=== PATIENT | female | born 1975 | race Asian ===

== ENCOUNTER → 2023-08-25 09:00 | Outpatient (REF) | payer BC, SELFPAY | LOC: WDC 09:00 | PROVIDERS: ATTENDING PHYSICIAN Obstetrics & Gynecology; FAMILY PHYSICIAN Family Medicine | DX: R92.8 Other abnormal and inconclusive findings on diagnostic imaging of breast (principal) | CPT/HCPCS: 76642 ==

== ENCOUNTER → 2024-03-14 07:52 | Outpatient (REF) | payer BC, SELFPAY | LOC: MRI 3T 07:52 | PROVIDERS: FAMILY PHYSICIAN Family Medicine | DX: C50.912 Malignant neoplasm of unspecified site of left female breast (principal) | CPT/HCPCS: 77049; A9585 ==

== ENCOUNTER → 2024-04-20 10:16 | Outpatient (REF) | payer BC, SELFPAY | LOC: HWRAD 10:16 | PROVIDERS: ATTENDING PHYSICIAN Internal Medicine Hematology & Oncology; FAMILY PHYSICIAN Family Medicine; OTHER PHYSICIAN Obstetrics & Gynecology | DX: N95.1 Menopausal and female climacteric states (principal); N92.6 Irregular menstruation, unspecified; Z79.810 Long term (current) use of selective estrogen receptor modulators (SERMs) | CPT/HCPCS: 76830; 76856 ==

== ENCOUNTER → 2024-04-21 13:13 | Outpatient (REF) | payer BC, SELFPAY | LOC: PAVMRI 13:13 | PROVIDERS: ATTENDING PHYSICIAN Orthopaedic Surgery; FAMILY PHYSICIAN Family Medicine | DX: M94.20 Chondromalacia, unspecified site (principal) | CPT/HCPCS: 73721 ==

== ENCOUNTER → 2024-05-09 06:28 | Day surgery (SDC) | payer BC, SELFPAY | LOC: GI 06:28 | PROVIDERS: ATTENDING PHYSICIAN Internal Medicine Gastroenterology; FAMILY PHYSICIAN Family Medicine | DX: Z12.11 Encounter for screening for malignant neoplasm of colon (principal); D12.4 Benign neoplasm of descending colon; K64.8 Other hemorrhoids | CPT/HCPCS: 45380; 88305 ==

== ENCOUNTER → 2024-08-23 07:50 | Outpatient (REF) | payer BC, SELFPAY | LOC: WDC 07:50 | PROVIDERS: ATTENDING PHYSICIAN Radiology Radiation Oncology | DX: Z12.31 Encounter for screening mammogram for malignant neoplasm of breast (principal) | CPT/HCPCS: 77063; 77067 ==

== ENCOUNTER 2024-10-10 06:22 | Day surgery (SDC) | payer OTHER, SELFPAY ==
[2024-09-26 11:25] LABS: % Basophils 0.7 % (0-2); % Eosinophils 2.1 % (0-6); % Lymphocytes 24.6 % (20.5-51.1); % Monocytes 6.1 % (1.7-9.3); % Neutrophils 66.5 % (42.2-75.2); Absolute Eosinophils 0.1 10^3/uL (0-0.7); Absolute Lymphocytes 1.1 10^3/uL (1.2-3.4); Absolute Monocytes 0.3 10^3/uL (0.1-0.6); Absolute Neutrophils 2.8 10^3/uL (1.4-6.5); Hematocrit 41.5 % (37.0-47.0); Hemoglobin 13.7 g/dL (12.0-16.0); Mean Corpuscular Hgb 30.9 pg (27.0-31.0); Mean Corpuscular Volume 93.5 fL (81.0-99.0); Mean Platelet Volume 10.3 fL (7.4-10.4); Nucleated Red Blood Cells % 0 %; Platelet Count 252 10^3/uL (130-400); Red Blood Cell Count 4.44 10^6/uL (4.20-5.40); Red Cell Dist. Width 12.4 % (11.5-14.5); White Blood Cell Count 4.3 10^3/uL (4.8-10.8)
[2024-09-26 12:10] LABS: Blood Urea Nitrogen 15 mg/dl (7-17); Calcium 9.5 mg/dl (8.4-10.2); Carbon Dioxide 29 mmol/L (22-30); Chloride 102 mmol/L (98-107); Glucose 90 mg/dl (70-99); Potassium 4.1 mmol/L (3.5-5.1); Sodium 140 mmol/L (135-145); eGFR > 60.00
[2024-09-27 12:28] VITALS: BMI 20.3
[2024-10-10] VITALS (8 sets, daily range): BP systolic 100–116; BP diastolic 40–72; BMI 20.3
[2024-10-10] MEDS: NEURONTIN 100 MG PO (06:44)
[2024-10-10] MEDS: TYLENOL 1000 MG PO (06:44)
[2024-10-10] MEDS: NORMOSOL-R/PLASMALYTE-A 1000 IV (06:51)
--- NOTE | 2024-10-10 08:13 | W.IMMPOSTOP ---
Surgical Immed Post Op Note
-
Primary Surgeon: Delma Diaz DO
Assisting Surgeon: N/A
Pre-op Diagnosis: Postmenopausal bleeding, thickened endometrial lining (6 mm), insufficient office biopsy
Post-op Diagnosis: Same
Procedure Performed: Diagnostic hysteroscopy D&C, suturing of cervical abrasion
Anesthesia Type: General LMA Dr. Cruz
Specimen / Cultures: 1. Endocervical curettings 2. Endometrial curettings
Estimated Blood Loss: 2 mL
Complications: Superficial abrasion on posterior cervix from tenaculum-sutured with 1 [id number] stitch for hemostasis.
Operative Findings: Uterus sounds to 6 cm. Bilateral tubal ostia visualized. The endometrial lining is completely atrophic. There is no evidence of lesions, polyp, mass. No abnormality seen.
Counts correct x 2
Stable to recovery.
Dictated.
== END 2024-10-10 09:50 | disposition home or self-care (01) ==
LOC: SDS 06:22
PROVIDERS: ATTENDING PHYSICIAN Obstetrics & Gynecology; FAMILY PHYSICIAN Family Medicine
DX: R93.89 Abnormal findings on diagnostic imaging of other specified body structures (principal); N95.0 Postmenopausal bleeding; N86 Erosion and ectropion of cervix uteri; Z85.3 Personal history of malignant neoplasm of breast
CPT/HCPCS: 58558; 88305; 80048; 85025; 86850; 86900; 86901; 88341; 88342

== ENCOUNTER 2024-10-22 07:41 | Emergency (ER) | payer OTHER, SELFPAY ==
[2024-10-22 07:45] VITALS: BP 119/87
--- NOTE | 2024-10-22 09:03 | ED.GENMED ---
History of Present Illness
General
Chief Complaint: Headache
Source: patient
Exam Limitations: none
Time Seen by Provider: 10/22/24 08:34
Nursing documentation reviewed up to this point in time: agreed with
History of Present Illness
History of Present Illness:
49-year-old female presents emergency room complaining of headache for the past 4 days. She has been taking ibuprofen which helps, but then the headache returns. He has a history of headaches in the past, but this episode does feel different.
Past History
Past History
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
ED Past Surgical History: Other (Left breast lumpectomy with lymph node dissection)
Social History
Tobacco: Non-smoker
Personal:
Review of Systems
Review of Systems
Allergies reviewed?: Yes
All Other Systems: Not applicable
Constitutional: Reports no symptoms
EENT: Reports no symptoms
Respiratory: Reports no symptoms
Cardiac: Reports no symptoms
ABD/GI: Reports no symptoms
: Reports no symptoms
Musculoskeletal: Reports no symptoms
Skin: Reports no symptoms
Neurological: Reports headache
Endocrine: Reports no symptoms
Hematologic/Lymphatic: Reports no symptoms
Psychiatric: Reports no symptoms
Phy Exam
Physical Exam
Physical Exam:
Physical Exam
General: no apparent distress, not acutely ill
Neck: supple. no meningeal signs. normal posterior pharynx
Heart: s1/s2 regular rate and rhythm, no murmur. equal radial
pulses.
HEENT: Pupils equal round reactive to light, EOMI
Lungs: no acute respiratory distress. clear bilaterally
Abdomen: normal bowel sounds. not tender. no CVAT
Neuro: alert and oriented. no focal neurological deficits cranial nerves II through XII intact
Skin: no rash
Psychiatric: well kept. interactive and cooperative
Extremities: no edema. no calf tenderness. negative homans. good distal pulses
Course
Orders/Labs/Results
Orders:
Orders
10/22/24 08:59
IV Insert/Care/Rem.- Treatment PRN
10/22/24 09:01
CT Head W/o Iv Contrast Urgent
Comment:
Reason For Exam: posterior headache 3 days
10/22/24 09:02
IV Insert/Care/Rem.- Treatment PRN
Diphenhydramine [Benadryl] 25 mg IV NOW STA
Ketorolac [Toradol] 15 mg IV NOW STA
Metoclopramide [Reglan] 10 mg IV NOW STA
10/22/24 11:02
Complete Blood Count/With Diff Urgent
Comprehensive Metabolic Panel Urgent
Abnormal Lab Results
10/22/24
11:02
WBC 4.2 L 10^3/uL
(4.8-10.8)
Absolute Lymphs (auto) 1.1 L 10^3/uL
(1.2-3.4)
Monocytes % 11.6 H %
(1.7-9.3)
Chloride 110 H mmol/L
(98-107)
10/22/24 11:02
10/22/24 11:02
Vital Signs
Initial and Last Documented VS:
Initial Vital Signs
Temp Pulse Resp BP Pulse Ox
98.0 F 74 16 119/87 98
10/22/24 07:45 10/22/24 07:45 10/22/24 07:45 10/22/24 07:45 10/22/24 07:45
Last Documented Vital Signs
Temp Pulse Resp BP Pulse Ox
98.0 F 75 16 115/69 96
10/22/24 07:45 10/22/24 11:14 10/22/24 11:14 10/22/24 11:14 10/22/24 11:14
MDM/Problems Addressed
Differential Diagnosis Includes:
Migraine, intracranial tumor
MDM/Problems Addressed:
49-year-old female with headache, suspect migraine. No neurologic deficits. Vital signs stable. CT head normal. Discharged follow-up with primary care. Return precautions given.
Chronic conditions affecting care: Neurological disorder (Migraines)
*Radiology
Radiology exam reviewed: radiology read reviewed (CT head no acute findings)
*Pulse Oximetry
Patient hypoxic: no
*Critical Care Note
Total Time (30-74mins, 75-104mins- exclusive of procedures): Not Applicable
Data Reviewed
Review of Other/Old Records Reveals: Radiology Studies (prior head ct nad)
Source: records
Patient Management
Social determinants of health affecting care: Living situation and Strong social support
Escalation/DeEscalation of care consider admission/obs:
admit not indicated
ED Attending Note
-
Portions of this chart may have been created with voice recognition software.� Occasional wrong word or��sound alike� substitutions may have occurred due to the inherent limitations of voice recognition software.
Discharge Plan
Departure
Patient Disposition: Home (Routine Discharge)
Date of Disposition: 10/22/24
Time of Disposition: 12:19
Patient with high blood pressure during this ER visit?: No
Condition: Good
Discharge Problem:
Headache
Instructions: Headache, Adult (DC)
Prescriptions:
No Action
acetaminophen [Tylenol Extra Strength] 500 mg Tablet
1,000 mg PO Q6H PRN (Reason: pain)
ibuprofen 200 mg Tablet
400 mg PO Q6H PRN (Reason: pain)
tamoxifen 20 mg Tablet
20 mg PO DAILY
Vitamin D3
1 dose PO DAILY
cyanocobalamin (vitamin B-12)
1 dose PO DAILY
Metamucil Packet
1 packet PO DAILY
Revaree 5 mg Suppository
1 supp VAGINAL Q3D
Referrals:
Giovanna Whitfield, [Family Provider] - Call in 1-3 days for appt
Interventions
Interventions:
*Risk Screen - Suicide Last Done: 10/22/24 07:45
*General Assessment Last Done: 10/22/24 08:54
*Neglect/Abuse Screening Last Done: 10/22/24 07:47
*ED- Fall Risk Assessment Last Done: 10/22/24 08:54
*ED COVID-19 Vaccine History Last Done: 10/22/24 08:54
ED- Neurological Assessment Last Done: 10/22/24 08:54
Discharge Date and Time
Print Language: [place]
[2024-10-22] MEDS: BENADRYL 25 MG IV (09:43)
[2024-10-22] MEDS: REGLAN 10 MG IV (09:46)
[2024-10-22] MEDS: TORADOL 15 MG IV (09:51)
[2024-10-22 11:14] VITALS: BP 115/69
[2024-10-22 11:16] LABS: % Basophils 0.5 % (0-2); % Eosinophils 1.9 % (0-6); % Immature Granulocytes 0.2 % (0-0.5); % Lymphocytes 25.5 % (20.5-51.1); % Monocytes 11.6 % (1.7-9.3); % Neutrophils 60.3 % (42.2-75.2); Absolute Eosinophils 0.1 10^3/uL (0-0.7); Absolute Lymphocytes 1.1 10^3/uL (1.2-3.4); Absolute Monocytes 0.5 10^3/uL (0.1-0.6); Absolute Neutrophils 2.6 10^3/uL (1.4-6.5); Hematocrit 37.6 % (37.0-47.0); Mean Corp Hgb Conc. 34.6 g/dL (33.0-37.0); Mean Corpuscular Hgb 30.9 pg (27.0-31.0); Mean Corpuscular Volume 89.3 fL (81.0-99.0); Mean Platelet Volume 9.6 fL (7.4-10.4); Nucleated Red Blood Cells % 0 %; Platelet Count 193 10^3/uL (130-400); Red Blood Cell Count 4.21 10^6/uL (4.20-5.40); Red Cell Dist. Width 12.1 % (11.5-14.5); White Blood Cell Count 4.2 10^3/uL (4.8-10.8)
[2024-10-22 11:24] LABS: ALT (SGPT) 20 U/L (0-35); AST (SGOT) 24 U/L (14-36); Albumin 4.2 g/dl (3.5-5.0); Alkaline Phosphatase 47 U/L (38-126); Blood Urea Nitrogen 14 mg/dl (7-17); Calcium 9.4 mg/dl (8.4-10.2); Carbon Dioxide 27 mmol/L (22-30); Chloride 110 mmol/L (98-107); Glucose 86 mg/dl (70-99); Sodium 143 mmol/L (135-145); Total Bilirubin 0.4 mg/dl (0.2-1.3); Total Protein 6.4 g/dl (6.3-8.2); eGFR > 60.00
[2024-10-22 12:37] VITALS: BP 115/68
== END 2024-10-22 12:38 | disposition home or self-care (01) ==
LOC: EMR 07:41
PROVIDERS: EMERGENCY PHYSICIAN Emergency Medicine; FAMILY PHYSICIAN Family Medicine
DX: R51.9 Headache, unspecified (principal); Z85.3 Personal history of malignant neoplasm of breast
CPT/HCPCS: 96374; 96375; 99284; 70450; 80053; 85025

== ENCOUNTER → 2024-12-09 13:47 | Outpatient (REF) | payer OTHER, SELFPAY | LOC: PAVMRI 13:47 | PROVIDERS: ATTENDING PHYSICIAN Specialist; FAMILY PHYSICIAN Family Medicine | DX: M25.562 Pain in left knee (principal) | CPT/HCPCS: 73721 ==

== ENCOUNTER → 2025-01-24 08:41 | Outpatient (REF) | payer OTHER, SELFPAY | LOC: RAD 08:41 | PROVIDERS: ATTENDING PHYSICIAN Internal Medicine Rheumatology; FAMILY PHYSICIAN Family Medicine | DX: Z13.820 Encounter for screening for osteoporosis (principal) | CPT/HCPCS: 77080; 77081 ==

== ENCOUNTER → 2025-04-21 07:28 | Outpatient (REF) | payer OTHER, SELFPAY | LOC: MRI 3T 07:28 | PROVIDERS: ATTENDING PHYSICIAN Internal Medicine Hematology & Oncology; FAMILY PHYSICIAN Family Medicine | DX: C50.412 Malignant neoplasm of upper-outer quadrant of left female breast (principal); Z17.0 Estrogen receptor positive status [ER+] | CPT/HCPCS: 77049; A9585 ==